=== PATIENT | female | born 1955 | race Two or more races ===

== ENCOUNTER 2025-06-01 21:10 | Inpatient (IN) | payer MEDICARE, OTHER ==
[~2025-06-01] VITALS: Ht 165.1 cm; Wt 110.7 kg
[2025-06-01 21:40] LABS: PLATELET COUNT (AUTO) 280 K/uL (150-450); RED BLOOD CELL COUNT(AUTO) 4.34 MIL/uL (4.0-5.2); RED CELL DISTRIBUTION WIDTH 14.3 % (11.5-15.0); WHITE BLOOD COUNT (AUTO) 7.9 K/uL (4.3-11.0)
[2025-06-01 21:55] LABS: ASPARTATE AMINOTRANSFERASE 17 U/L (15-37); CALCIUM, SERUM 9.8 mg/dL (8.5-10.1); CREATININE 1.6 mg/dL (0.6-1.3); SODIUM SERUM 137 mmol/L (136-145); TOTAL PROTEIN, SERUM 7.3 g/dL (6.4-8.2); UREA NITROGEN, BLOOD 26 mg/dL (7-18)
[2025-06-01 22:17] LABS: APPEARANCE,URINE CLEAR (CLEAR); BLOOD, URINE 1+ Ery/uL (NEGATIVE); LEUKOCYTE ESTERASE ,URINE 1+ (NEGATIVE); NITRITE, URINE NEGATIVE (NEGATIVE); UGLUCOSE NEGATIVE (NEGATIVE)
[2025-06-01 22:31] LABS: ADD URINE CULTURE YES; SQUAMOUS EPITHELIAL CELL,UR 0-2 /HPF (None Seen)
[2025-06-01 22:41] LABS: AMPHETAMINE, URINE NEGATIVE (NEGATIVE); BARBITURATE, URINE NEGATIVE (NEGATIVE); BENZODIAZEPINE, URINE NEGATIVE (NEGATIVE); CANNABINOID, URINE NEGATIVE (NEGATIVE); COCCAINE, URINE NEGATIVE (NEGATIVE); OPIATE, URINE NEGATIVE (NEGATIVE)
[2025-06-02] MEDS ORDERED: MAGNESIUM HYDROXIDE 30 ML UDC PO PRN
[2025-06-02] MEDS ORDERED: Z GUARD REMEDY 4 OZ OINT TP PRN
[2025-06-02] MEDS ORDERED: ZOLPIDEM TARTRATE 5 MG TABLET PO PRN ×2
[2025-06-02] MEDS ORDERED: MAG HYDROX/AL HYDROX/SIMETH 30 ML UDC PO PRN
[2025-06-02] MEDS ORDERED: LORAZEPAM 1 MG TABLET PO PRN
[2025-06-02] MEDS ORDERED: ACETAMINOPHEN 325 MG TABLET PO PRN
[2025-06-02] MEDS ORDERED: LEVO100T9 PO (00:26)
[2025-06-02] MEDS ORDERED: TRAZ-257 PO (00:27)
[2025-06-02] MEDS ORDERED: LISI10TA29 PO (00:28)
[2025-06-02] MEDS: BLOOD SUGAR DIAGNOSTIC 1 EACH STRIP IN ONE (00:37)
[2025-06-02] MEDS ORDERED: INSULIN REGULAR, HUMAN 100 UNIT/ML 3 ML VIAL SQ PRN ×2 (02:00→10:00)
[2025-06-02] MEDS ORDERED: DEXTROSE 50%-WATER 50 ML DISP.SYRIN IV PRN ×2 (02:00→10:00)
[2025-06-02 02:13] VITALS: BP 152/59; TEMP 97.5
[2025-06-02] MEDS ORDERED: GLIP5TAB13 PO (06:56)
[2025-06-02] MEDS: BLOOD SUGAR DIAGNOSTIC 1 EACH STRIP IN SCH (07:30)
[2025-06-02 08:00] VITALS: BP 122/70; TEMP 98; O2SAT 100
[2025-06-02] MEDS: CEPHALEXIN MONOHYDRATE 500 MG CAPSULE PO SCH (08:15)
[2025-06-02] MEDS ORDERED: *INSULIN REGULAR(HUMULIN R)HUM 100 UNIT/ML VIAL SQ PRN (10:00)
[2025-06-02] MEDS ORDERED: HYDROCORTISONE 0.5% CREAM 28.35 GM TUBE TP SCH ×2 (10:30→13:00)
[2025-06-02] MEDS: VENLAFAXINE XR 75 MG CAP.SR.24H PO SCH (11:05)
[2025-06-02] MEDS: BLOOD SUGAR DIAGNOSTIC 1 EACH STRIP VI SCH (11:38)
[2025-06-02] MEDS: HYDROCORTISONE 1% CREAM 28.35 GM TUBE TP SCH (13:28)
[2025-06-02 16:16] VITALS: BP 115/77; TEMP 98; O2SAT 98
[2025-06-02] MEDS: DIVALPROEX SODIUM 250 MG TABLET.DR PO SCH (20:56)
[2025-06-02 20:59] VITALS: BP 130/64; TEMP 98; O2SAT 98
[2025-06-03] MEDS: LEVOTHYROXINE SODIUM 100 MCG TABLET PO SCH (06:41)
[2025-06-03 07:57] LABS: PLATELET COUNT (AUTO) 288 K/uL (150-450); RED BLOOD CELL COUNT(AUTO) 3.88 MIL/uL (4.0-5.2); RED CELL DISTRIBUTION WIDTH 14.2 % (11.5-15.0); WHITE BLOOD COUNT (AUTO) 7.7 K/uL (4.3-11.0)
[2025-06-03 08:03] LABS: ASPARTATE AMINOTRANSFERASE 8.0 U/L (15-37); CALCIUM, SERUM 9.5 mg/dL (8.5-10.1); CREATININE 1.3 mg/dL (0.6-1.3); PHOSPHORUS 4.2 mg/dL (2.5-4.9); SODIUM SERUM 139.0 mmol/L (136-145); TOTAL PROTEIN, SERUM 6.7 g/dL (6.4-8.2); UREA NITROGEN, BLOOD 27.0 mg/dL (7-18)
[2025-06-03 08:16] VITALS: BP 132/69; TEMP 97.8; O2SAT 98
[2025-06-03 08:34] LABS: LDL 104 mg/dL (0-99)
[2025-06-03 10:02] LABS: CREATINE KINASE, TOTAL 56.0 U/L (26-192)
[2025-06-03 16:04] VITALS: BP 118/64; TEMP 98.2; O2SAT 95
[2025-06-03 20:47] VITALS: BP 128/67; TEMP 97.9; O2SAT 97
[2025-06-03] MEDS: TRAZODONE 50 MG TABLET PO PRN (21:03)
[2025-06-04 08:00] VITALS: BP 131/63; TEMP 97.9; O2SAT 100
[2025-06-04 15:10] VITALS: BP 113/69; TEMP 97.8; O2SAT 96
[2025-06-04 20:32] VITALS: BP 144/86; TEMP 97.9; O2SAT 96
[2025-06-05 07:07] LABS: PTH, INTACT 19 pg/mL (15-65)
[2025-06-05 08:00] VITALS: BP 128/63; TEMP 97.8; O2SAT 100
[2025-06-05 17:01] VITALS: BP 142/82; TEMP 98; O2SAT 99
[2025-06-05 19:47] VITALS: BP 120/66; TEMP 97.7; O2SAT 100
[2025-06-05] MEDS: TRAZODONE 50 MG TABLET PO PRN (21:23)
[2025-06-06 08:00] VITALS: BP 134/64; TEMP 97.8; O2SAT 98
[2025-06-06] MEDS ORDERED: DEXTROSE 50%-WATER 50 ML DISP.SYRIN IV PRN (11:00)
[2025-06-06] MEDS ORDERED: INSULIN REGULAR, HUMAN 100 UNIT/ML 3 ML VIAL SQ PRN (11:00)
[2025-06-06] MEDS: BLOOD SUGAR DIAGNOSTIC 1 EACH STRIP IN SCH (11:31)
[2025-06-06 16:00] VITALS: BP 116/70; TEMP 97.8; O2SAT 98
[2025-06-06 20:14] VITALS: BP 153/85; TEMP 97.9; O2SAT 98
[2025-06-07 08:00] VITALS: BP 136/75; TEMP 97.7; O2SAT 99
[2025-06-07] MEDS: DIVALPROEX SODIUM 250 MG TABLET.DR PO SCH (12:07)
[2025-06-07 16:00] VITALS: BP 135/70; TEMP 98.6; O2SAT 99
[2025-06-07 20:30] VITALS: BP 118/74; TEMP 98; O2SAT 98
[2025-06-07] MEDS: TRAZODONE 50 MG TABLET ONE (21:25)
[2025-06-08 08:00] VITALS: BP 136/83; TEMP 97.3; O2SAT 97
[2025-06-08 16:00] VITALS: BP 103/85; TEMP 98.6; O2SAT 100
[2025-06-08 19:59] VITALS: BP 134/63; TEMP 99; O2SAT 99
[2025-06-09 15:57] VITALS: BP 142/81; TEMP 98; O2SAT 96
[2025-06-09 20:39] VITALS: BP 130/57; TEMP 98; O2SAT 97
[2025-06-10 08:00] VITALS: BP 127/75; TEMP 97.8; O2SAT 97
[2025-06-10 16:00] VITALS: BP 114/65; TEMP 97.8; O2SAT 93
[2025-06-10 20:00] VITALS: BP 127/66; TEMP 98.4; O2SAT 100
[2025-06-10 20:12] VITALS: BP 127/66; TEMP 98.4; O2SAT 96
[2025-06-11 08:00] VITALS: BP 122/50; TEMP 97.8; O2SAT 97
[2025-06-11 15:53] VITALS: BP 146/70; TEMP 97.9; O2SAT 99
[2025-06-11 20:10] VITALS: BP 125/66; TEMP 98.4; O2SAT 98
[2025-06-12 08:27] VITALS: BP 120/57; TEMP 98.6; O2SAT 97
== END 2025-06-12 14:50 | DRG 885 ==
LOC: ER 21:14 → GPS 22:26
PROVIDERS: ADMIT Psychiatry & Neurology Psychiatry; ATTEND Nurse Practitioner Acute Care
DX: F31.5 Bipolar disorder, current episode depressed, severe, with psychotic features (principal); N18.9 Chronic kidney disease, unspecified; N17.0 Acute kidney failure with tubular necrosis; N39.0 Urinary tract infection, site not specified; Z59.00 Homelessness unspecified; Z68.41 Body mass index [BMI] 40.0-44.9, adult; F29 Unspecified psychosis not due to a substance or known physiological condition; I12.9 Hypertensive chronic kidney disease with stage 1 through stage 4 chronic kidney disease, or unspecified chronic kidney disease; E11.22 Type 2 diabetes mellitus with diabetic chronic kidney disease; F60.9 Personality disorder, unspecified; Z91.51 Personal history of suicidal behavior; E66.01 Morbid (severe) obesity due to excess calories; R45.850 Homicidal ideations; E03.9 Hypothyroidism, unspecified; Z91.52 Personal history of nonsuicidal self-harm; N18.32 Chronic kidney disease, stage 3b
CPT/HCPCS: 36415; 76770-TC; 80048-TC; 80053-TC; 80061-TC; 80076-TC; 80164-TC; 81001; 82550-TC; 82962-TC; 83735-TC; 83970; 84100-TC; 84155; 84165; 85025-TC; 87086-TC; 97112-TC; 97116-TC; 97530-TC; J1815